=== PATIENT | male | born 1995 | race Caucasian/White ===

== ENCOUNTER 2024-11-07 23:02 | Emergency (ER) | payer OTHER ==
[2024-11-07] MEDS ORDERED: Bacitracin 1 PK ONE (23:51)
== END 2024-11-07 23:57 | disposition home or self-care (01) ==
LOC: ERS 23:02
DX: S81.812A Laceration without foreign body, left lower leg, initial encounter (principal); W26.8XXA Contact with other sharp object(s), not elsewhere classified, initial encounter
CPT/HCPCS: 12001; 99282